=== PATIENT | female | born 1955 | race Caucasian/White ===

== ENCOUNTER 2017-04-17 12:26 | Emergency (ER) | payer MEDICARE ==
[~2017-04-17 12:26] MED LIST: Donnatal Elixir 16.2 MG/5 ML UDCUP ONE; Sodium Chloride 0.9% 1,000 ML BAG ONE
[2017-04-17] MEDS ORDERED: Ondansetron HCl/PF 4 MG/2 ML Vial ONE (12:45)
[2017-04-17] MEDS ORDERED: Ketorolac Tromethamine 30 MG/ML VIAL ONE (12:46)
[2017-04-17 13:10] LABS: Clarity Slightly Cloudy (Clear); Specific Gravity, Urine 1.015 (1.005-1.030)
[2017-04-17 13:14] LABS: Bacteria/HPF 4+ HPF (None Seen); Bilirubin Negative (Negative); Blood, Urine Negative (Negative); Glucose, Urine (Dipstick) >=1000 mg/dL (Negative); Leukocyte Negative (Negative); Nitrite Positive (Negative); Protein, Urine (Dipstick) Negative (Neg-Trace); RBC/HPF 0-3 HPF (0-3)
[2017-04-17 13:27] LABS: #Basophils 0.1 thou/uL (0.0-0.2); #Lymphocytes 1.4 thou/uL (1.20-3.40); #Monocytes 0.3 thou/uL (0.11-0.59); #Neutrophils 9.1 thou/uL (1.40-6.50); %Basophils 0.7 % (0.0-1.0); %Eosinophils 0.2 % (0.0-10.0); %Lymphocytes 12.9 % (21.0-51.0); %Monocytes 2.4 % (0.0-10.0); %Neutrophils 83.7 % (42.0-75.0); Hemoglobin 17.1 g/dL (12.0-16.0); Mean Corpuscular HGB CONC 34.9 g/dL (32.0-36.0); Mean Corpuscular Hemoglobin 30.8 pg (27.0-31.0); Mean Corpuscular Volume 88.2 fl (81.0-99.0); Mean Platelet Volume 8.4 fL (7.4-10.4); Platelet Count 216 thou/uL (130-400); RBC Distribution Width 11.8 % (11.5-14.5); Red Blood Cell (RBC) Count 5.54 mill/uL (4.20-5.40); White Blood Cell (WBC) Count 10.9 thou/uL (4.8-10.8)
[2017-04-17 13:32] LABS: ALT (SGPT) 10 U/L (8-55); AST (SGOT) 10 U/L (5-34); Albumin 4.5 g/dL (3.4-4.8); Alkaline Phosphatase 153 U/L (40-150); Anion Gap 19 mmol/L (10-20); BUN (Urea Nitrogen) 16 mg/dL (9.8-20.1); Calc. Creatinine Clearance 0 mL/min (70-130); Calcium 9.7 mg/dL (7.8-10.44); Carbon Dioxide 26 mmol/L (23-31); Chloride 94 mmol/L (98-107); Estimated GFR-MDRD 53; Glucose 446 mg/dL (80-115); Lipase 16 U/L (8-78); Potassium 3.8 mmol/L (3.5-5.1); Protein, Total 7.5 g/dL (6.0-8.3); Sodium 135 mmol/L (136-145)
[2017-04-17] MEDS ORDERED: Iopamidol 370 76% 100 ML VIAL ONE (13:32)
[2017-04-17] MEDS ORDERED: Donnatal Elixir 16.2 MG/5 ML UDCUP ONE (13:53)
[2017-04-17] MEDS ORDERED: Lidocaine Viscous Sol 2% 15 ml UD Cup ONE (13:53)
[2017-04-17] MEDS ORDERED: Mag-Al Plus 1200 MG/1200 MG/120 MG/30 ML UDCUP ONE (13:53)
[2017-04-17] MEDS ORDERED: Nitrofurantoin Monohyd/M-Cryst 100 MG CAP ONE (14:16)
--- NOTE | 2017-04-17 17:01 | CT ---
CT ABDOMEN WITH IV CONTRAST CT PELVIS WITH IV CONTRAST: Date: 04-17-17 History: Mid upper abdominal pain for one day. Comparison: 09-08-11 FINDINGS: The lung bases are clear. There is a small amount of contrast seen in the distal esophagus with a tiny hiatal hernia. Contrast in the distal esophagus may be related to gastroesophageal reflux. As note on the prior examination there are post cholecystectomy changes with dilatation of the commo n duct and mild prominence of the pancreatic duct which is a stable finding and is probably related to reservoir effect from post cholecystectomy changes. There is a tiny low density subcentimeter nodule in the lateral limb of the left adrenal gland which is stable from the prior exam and suggests a benign finding. It may represent a tiny adrenal adenom a. The liver, spleen, right adrenal gland, and bilateral kidneys and urinary bladder demonstrate a norm al CT appearance. While there is prominence of the pancreatic duct, the pancreas otherwise also has a normal CT appearance. Vascular calcifications are seen in the abdomen aorta and involving the tyrone c arteries. The uterus is not visualized and may be surgically absent. This is a stable finding. The opacified bowel has a normal CT appearance. There is evidence of a left total hip prosthesis. There has been no other interval change compared to the prior exam. IMPRESSION: 1. No acute findings are seen in the abdomen or pelvis. 2. Post cholecystectomy changes similar to the prior study. 3. Previously noted stranding and low density material adjacent to the head of the pancreas has reso lved. 4. Probable tiny left adrenal adenoma. 5. Contrast distal esophagus suggesting gastroesophageal reflux. There is a tiny hiatal hernia prese nt. 6. Hysterectomy. POS: [facility]
[2017-04-17] MEDS ORDERED: Pantoprazole 40 MG VIAL ONE (17:35)
[2017-04-17] MEDS ORDERED: Insulin Regular 300 UNITS/3 ML VIAL ONE (17:36)
== END 2017-04-17 19:10 | disposition home or self-care (01) ==
LOC: MADERS 12:26
DX: K21.9 Gastro-esophageal reflux disease without esophagitis (principal); E11.65 Type 2 diabetes mellitus with hyperglycemia; N39.0 Urinary tract infection, site not specified; I10 Essential (primary) hypertension; J45.909 Unspecified asthma, uncomplicated; E03.9 Hypothyroidism, unspecified; F31.9 Bipolar disorder, unspecified; F17.210 Nicotine dependence, cigarettes, uncomplicated; Z79.899 Other long term (current) drug therapy; Z79.84 Long term (current) use of oral hypoglycemic drugs
CPT/HCPCS: 36415; 36416; 74177; 80053; 81001; 82150; 83690; 85025; 86140; 87077; 87086; 87186; 96361; 96374; 96375; 96376; C9113; J1815; J1885; J2270; J2405; J7050

== ENCOUNTER 2017-05-02 05:15 | Emergency (ER) | payer MEDICARE ==
[2017-05-02 06:41] LABS: #Basophils 0.1 thou/uL (0.0-0.2); #Eosinphils 0.4 thou/uL (0.0-0.7); #Lymphocytes 2.6 thou/uL (1.20-3.40); #Monocytes 0.4 thou/uL (0.11-0.59); %Basophils 1.6 % (0.0-1.0); %Eosinophils 5.2 % (0.0-10.0); %Monocytes 5.7 % (0.0-10.0); %Neutrophils 53.6 % (42.0-75.0); Hemoglobin 14.1 g/dL (12.0-16.0); Mean Corpuscular HGB CONC 33.7 g/dL (32.0-36.0); Mean Corpuscular Hemoglobin 30.1 pg (27.0-31.0); Mean Corpuscular Volume 89.3 fl (81.0-99.0); Mean Platelet Volume 7.6 fL (7.4-10.4); Platelet Count 217 thou/uL (130-400); RBC Distribution Width 11.9 % (11.5-14.5); Red Blood Cell (RBC) Count 4.67 mill/uL (4.20-5.40); White Blood Cell (WBC) Count 7.5 thou/uL (4.8-10.8)
[2017-05-02] MEDS ORDERED: diphenhydrAMINE HCl 50 MG/ML 1 ML VIAL ONE (06:49)
[2017-05-02] MEDS ORDERED: Morphine Sulfate 2 MG/ML SYRINGE ONE (06:49)
[2017-05-02] MEDS ORDERED: Ondansetron HCl/PF 4 MG/2 ML Vial ONE (06:49)
[2017-05-02 06:52] LABS: D-Dimer Test 0.45 *mcg/mL (0.27-0.43); INR-International Normal Ratio 0.9; Prothrombin Time 12.6 SEC (12.0-14.7)
[2017-05-02 06:57] LABS: PTT 29.9 SEC (22.9-36.1)
[2017-05-02 07:02] LABS: ALT (SGPT) 7 U/L (8-55); AST (SGOT) 10 U/L (5-34); Albumin 3.9 g/dL (3.4-4.8); Alkaline Phosphatase 125 U/L (40-150); Anion Gap 15 mmol/L (10-20); BUN (Urea Nitrogen) 9 mg/dL (9.8-20.1); Bilirubin, Total 0.4 mg/dL (0.2-1.2); CK (CPK) 46 U/L (29-168); Calc. Creatinine Clearance 0 mL/min (70-130); Calcium 9.4 mg/dL (7.8-10.44); Carbon Dioxide 26 mmol/L (23-31); Chloride 101 mmol/L (98-107); Estimated GFR-MDRD 74; Globulin 2.8 g/dL (2.4-3.5); Glucose 286 mg/dL (80-115); Lipase 20 U/L (8-78); Potassium 3.6 mmol/L (3.5-5.1); Protein, Total 6.7 g/dL (6.0-8.3); Sodium 138 mmol/L (136-145)
[2017-05-02 07:03] LABS: CKMB 1.1 ng/mL (0-6.6); Troponin I Less than 0.010 ng/mL (< 0.028)
[2017-05-02 07:08] LABS: Amphetamine Detected (NotDetected); Barbiturates Screen Not Detected (NotDetected); Benzodiazepine Screen Not Detected (NotDetected); Cocaine Metabolite Screen Not Detected (NotDetected); Medtox Control Line Valid? VALID (VALID); Methadone Not Detected (NotDetected); Methamphetamine Not Detected (NotDetected); Opiate Screen Not Detected (NotDetected); Oxycodone Screen Not Detected (NotDetected); Phencyclidine (PCP) Not Detected (NotDetected); THC/Cannabinoid Screen Not Detected (NotDetected); Tricyclic Screen Detected (NotDetected)
[2017-05-02 07:09] LABS: Clarity Clear (Clear); Glucose, Urine (Dipstick) >=1000 mg/dL (Negative); Leukocyte Negative (Negative); Nitrite Negative (Negative); Protein, Urine (Dipstick) Negative (Neg-Trace); pH, Urine 6.5 (5.0-9.0)
[2017-05-02 07:10] LABS: Bilirubin Negative (Negative); Blood, Urine Negative (Negative); RBC/HPF 0-3 HPF (0-3); Squamous Epithelial 0-3 HPF (0-3); Urobilinogen 0.2 mg/dL (0.2-1.0); WBC/HPF 0-3 HPF (0-3)
[2017-05-02 07:11] LABS: Bacteria/HPF Rare-Few HPF (None Seen)
[2017-05-02] MEDS ORDERED: Sodium Chloride 0.9% 1,000 ML BAG ONE (07:47)
--- NOTE | 2017-05-02 08:21 | CT ---
EXAM: CT ANGIOGRAM OF THE CHEST: HISTORY: Severe upper back pain. COMPARISON: None. TECHNIQUE: CT angiogram of the chest is performed in the axial plane. Bilateral oblique and coronal 3-dimensio nal maximum intensity projection images are submitted for interpretation. FINDINGS: No mediastinal mass, lymphadenopathy, or hematoma. Heart size is within normal limits. No pericard ial effusion. Thoracic aorta and upper abdominal aorta have an overall normal caliber. No periaort ic fat stranding. No aneurysm. Minimal atherosclerotic changes are noted. Visualized upper solid organs are unremarkable. Surgically absent gallbladder. Trachea and central bronchi are patent. No masses or consolidation. No pleural effusion or pneumot horax. Adequate contrast opacification of the pulmonary arterial system to the level of the segmental arter ies. No filling defect to imply thromboembolism. No osteoblastic or osteolytic lesions. IMPRESSION: No evidence of pulmonary artery embolism to the level of the segmental arteries. POS: [facility]
[2017-05-02] MEDS ORDERED: Iopamidol 370 76% 125 ML VIAL FS ONE (11:58)
[2017-05-02] MEDS ORDERED: Sodium Chloride 0.9% 100 ML BAG ONE (11:58)
== END 2017-05-02 09:38 | disposition home or self-care (01) ==
LOC: MADERS 05:15
DX: M54.6 Pain in thoracic spine (principal); I10 Essential (primary) hypertension; J45.909 Unspecified asthma, uncomplicated; E11.9 Type 2 diabetes mellitus without complications; E03.9 Hypothyroidism, unspecified; F31.9 Bipolar disorder, unspecified; F17.210 Nicotine dependence, cigarettes, uncomplicated; Z79.84 Long term (current) use of oral hypoglycemic drugs; Z79.899 Other long term (current) drug therapy
CPT/HCPCS: 71275; 80053; 80306; 81001; 82553; 83690; 83880; 84484; 85025; 85379; 85610; 85652; 85730; 87086; 93005; 96361; 96374; 96375; 96376; J1200; J2270; J2405; J7050

== ENCOUNTER 2017-05-20 11:14 | Emergency (ER) | payer MEDICARE ==
[2017-05-20] MEDS ORDERED: Fentanyl 100 MCG/2 ML VIAL ONE (11:48)
== END 2017-05-20 13:29 | disposition home or self-care (01) ==
LOC: MADERS 11:14
DX: M54.6 Pain in thoracic spine (principal); F41.9 Anxiety disorder, unspecified; I10 Essential (primary) hypertension; J45.909 Unspecified asthma, uncomplicated; E11.9 Type 2 diabetes mellitus without complications; E03.9 Hypothyroidism, unspecified; F31.9 Bipolar disorder, unspecified; F17.210 Nicotine dependence, cigarettes, uncomplicated; Z79.899 Other long term (current) drug therapy; Z79.84 Long term (current) use of oral hypoglycemic drugs
CPT/HCPCS: 96372; J3010

== ENCOUNTER 2017-06-02 07:09 | Emergency (ER) | payer MEDICARE ==
--- NOTE | 2017-06-02 09:22 | RAD ---
4 VIEWS RIGHT KNEE: Date: 06/02/17 COMPARISON: None. HISTORY: Right knee pain. FINDINGS: Four views of the right knee show no evidence of acute fracture or dislocation. Mild tricompartmenta l osteophyte formation is seen consistent with osteoarthritis. IMPRESSION: Mild right knee osteoarthritis without acute osseous abnormality. POS: [facility]
== END 2017-06-02 08:35 | disposition home or self-care (01) ==
LOC: MADERS 07:09
DX: S83.411A Sprain of medial collateral ligament of right knee, initial encounter (principal); G89.29 Other chronic pain; M54.6 Pain in thoracic spine; I10 Essential (primary) hypertension; J45.909 Unspecified asthma, uncomplicated; E11.9 Type 2 diabetes mellitus without complications; E03.9 Hypothyroidism, unspecified; F31.9 Bipolar disorder, unspecified; F17.210 Nicotine dependence, cigarettes, uncomplicated; W18.30XA Fall on same level, unspecified, initial encounter; Y93.02 Activity, running

== ENCOUNTER 2017-09-02 06:07 | Emergency (ER) | payer MEDICARE ==
[2017-09-02] MEDS ORDERED: HYDROcodone/Acetaminophen 5/325 mg Tablet ONE (06:34)
[2017-09-02] MEDS ORDERED: Lorazepam 1 MG TAB ONE (06:34)
[2017-09-02] MEDS ORDERED: Acyclovir 200 mg Capsule ONE ×2 (06:36→06:37)
[2017-09-02] MEDS ORDERED: Gabapentin 100 MG CAP ONE (06:36)
--- NOTE | 2017-09-02 08:41 | RAD ---
CHEST 2 VIEWS: HISTORY: Cough. COMPARISON: 05/11/17. FINDINGS: The cardiac silhouette and pulmonary vasculature are unremarkable. Mediastinum is midline. There i s no confluent airspace consolidation, pneumothorax, or pleural fluid evident. Calcifications appar ent within the aorta. IMPRESSION: 1. Atherosclerosis. 2. No active cardiopulmonary abnormalities are otherwise demonstrated. POS: [facility]
== END 2017-09-02 07:15 | disposition home or self-care (01) ==
LOC: MADERS 06:07
DX: B02.9 Zoster without complications (principal); I10 Essential (primary) hypertension; J45.909 Unspecified asthma, uncomplicated; E11.9 Type 2 diabetes mellitus without complications; E03.9 Hypothyroidism, unspecified; F31.9 Bipolar disorder, unspecified; F17.210 Nicotine dependence, cigarettes, uncomplicated
CPT/HCPCS: 71020

== ENCOUNTER 2017-12-19 19:16 | Emergency (ER) | payer MEDICARE ==
[~2017-12-19 19:16] MED LIST changes: -Donnatal Elixir 16.2 MG/5 ML UDCUP ONE; +Sodium Chloride 0.9% 100 ML BAG ONE
[2017-12-19] MEDS ORDERED: methylPREDNISolone Sod Succ/PF 125 MG/2 ML VIAL ONE (19:31)
--- NOTE | 2017-12-19 20:10 | RAD ---
PORTABLE CHEST 12/19/17 PROVIDED CLINICAL HISTORY: Cough. FINDINGS: Comparison is made with the study dated 09/02/17. Cardiac and mediastinal silhouette is unchanged in appearance. Atherosclerosis involves the aortic ar ch. No focal consolidation, pleural fluid or pneumothorax apparent. IMPRESSION: No evidence for an acute cardiopulmonary process. POS: [facility]
[2017-12-19 20:36] LABS: ALT (SGPT) 9 U/L (8-55); AST (SGOT) 16 U/L (5-34); Albumin 3.2 g/dL (3.4-4.8); Alkaline Phosphatase 215 U/L (40-150); Anion Gap 24 mmol/L (10-20); BUN (Urea Nitrogen) 14 mg/dL (9.8-20.1); Bilirubin, Total 0.6 mg/dL (0.2-1.2); Calc. Creatinine Clearance 0 mL/min (70-130); Calcium 9.8 mg/dL (7.8-10.44); Carbon Dioxide 21 mmol/L (23-31); Chloride 93 mmol/L (98-107); Estimated GFR-MDRD 63; Globulin 4.9 g/dL (2.4-3.5); Glucose 444 mg/dL (80-115); Potassium 3.3 mmol/L (3.5-5.1); Protein, Total 8.1 g/dL (6.0-8.3); Sodium 135 mmol/L (136-145)
[2017-12-19 20:41] LABS: CKMB 1.6 ng/mL (0-6.6); Troponin I Less than 0.010 ng/mL (< 0.028)
[2017-12-19 20:51] LABS: Bilirubin Small (Negative); Blood, Urine Trace (Negative); Glucose, Urine (Dipstick) 500 mg/dL (Negative); Leukocyte Negative (Negative); Nitrite Negative (Negative); Protein, Urine (Dipstick) 30 mg/dL (Neg-Trace); Specific Gravity, Urine 1.015 (1.005-1.030); pH, Urine 6.5 (5.0-9.0)
[2017-12-19] MEDS ORDERED: Insulin Regular 300 UNITS/3 ML VIAL ONE (20:56)
[2017-12-19] MEDS ORDERED: Morphine 4 MG/ML VIAL ONE (20:56)
[2017-12-19] MEDS ORDERED: Piperacillin/Tazobactam 3.375 GM VIAL ONE (20:56)
[2017-12-19 21:04] LABS: Hemoglobin 14.3 g/dL (12.0-16.0); Mean Corpuscular HGB CONC 33.9 g/dL (32.0-36.0); Mean Corpuscular Hemoglobin 30.8 pg (27.0-31.0); Mean Corpuscular Volume 90.8 fl (81.0-99.0); Mean Platelet Volume 8.2 fL (7.4-10.4); Platelet Count 433 thou/uL (130-400); RBC Distribution Width 11.9 % (11.5-14.5); Red Blood Cell (RBC) Count 4.65 mill/uL (4.20-5.40); White Blood Cell (WBC) Count 16.9 thou/uL (4.8-10.8)
[2017-12-19 21:09] LABS: MDiff Complete? YES
[2017-12-19 21:10] LABS: Band 18 % (5-11); Lymphocytes 8 % (21-51); Metamyelocyte 1 % (0-0); Monocytes 1 % (0-10); Neutrophil 71 % (42-75)
[2017-12-19 21:11] LABS: Bacteria/HPF 1+ HPF (None Seen); Clarity Hazy (Clear)
[2017-12-19 21:12] LABS: Amphetamine Detected (NotDetected); Barbiturates Screen Not Detected (NotDetected); Benzodiazepine Screen Detected (NotDetected); Cocaine Metabolite Screen Not Detected (NotDetected); Medtox Control Line Valid? VALID (VALID); Methadone Not Detected (NotDetected); Methamphetamine Detected (NotDetected); Opiate Screen Detected (NotDetected); Oxycodone Screen Not Detected (NotDetected); Phencyclidine (PCP) Not Detected (NotDetected); THC/Cannabinoid Screen Not Detected (NotDetected); Tricyclic Screen Not Detected (NotDetected)
== END 2017-12-19 21:58 | disposition short-term general hospital (02) ==
LOC: MADERS 19:16
DX: J10.1 Influenza due to other identified influenza virus with other respiratory manifestations (principal); J44.1 Chronic obstructive pulmonary disease with (acute) exacerbation; E11.65 Type 2 diabetes mellitus with hyperglycemia; I10 Essential (primary) hypertension; E03.9 Hypothyroidism, unspecified; F31.9 Bipolar disorder, unspecified; F17.210 Nicotine dependence, cigarettes, uncomplicated
CPT/HCPCS: 36415; 36416; 71045; 80053; 80306; 81003; 81015; 82553; 83605; 83880; 84443; 84484; 85025; 87040; 96361; 96365; 96375; J1815; J2270; J2543; J2930; J7050; J7620

== ENCOUNTER 2018-01-23 18:57 | Emergency (ER) | payer MEDICARE ==
[~2018-01-23 18:57] MED LIST changes: -Sodium Chloride 0.9% 100 ML BAG ONE
[2018-01-23] MEDS ORDERED: Ondansetron HCl/PF 4 MG/2 ML Vial ONE (19:27)
[2018-01-23] MEDS ORDERED: Fentanyl 100 MCG/2 ML VIAL ONE (19:27)
[2018-01-23] MEDS ORDERED: Iopamidol 370 76% 125 ML VIAL FS ONE (19:30)
[2018-01-23 19:34] LABS: #Basophils 0.1 thou/uL (0.0-0.2); #Lymphocytes 2.3 thou/uL (1.20-3.40); #Monocytes 0.6 thou/uL (0.11-0.59); #Neutrophils 9.8 thou/uL (1.40-6.50); %Basophils 0.4 % (0.0-1.0); %Eosinophils 0.1 % (0.0-10.0); %Lymphocytes 18.2 % (21.0-51.0); %Neutrophils 76.3 % (42.0-75.0); Hemoglobin 14.9 g/dL (12.0-16.0); Mean Corpuscular HGB CONC 34.2 g/dL (32.0-36.0); Mean Corpuscular Hemoglobin 30.6 pg (27.0-31.0); Mean Corpuscular Volume 89.5 fl (81.0-99.0); Mean Platelet Volume 8.2 fL (7.4-10.4); Platelet Count 194 thou/uL (130-400); Red Blood Cell (RBC) Count 4.86 mill/uL (4.20-5.40); White Blood Cell (WBC) Count 12.8 thou/uL (4.8-10.8)
[2018-01-23 19:53] LABS: ALT (SGPT) 9 U/L (8-55); AST (SGOT) 11 U/L (5-34); Albumin 3.9 g/dL (3.4-4.8); Alkaline Phosphatase 123 U/L (40-150); Anion Gap 19 mmol/L (10-20); BUN (Urea Nitrogen) 11 mg/dL (9.8-20.1); Bilirubin, Total 1.4 mg/dL (0.2-1.2); Calc. Creatinine Clearance 0 mL/min (70-130); Calcium 8.7 mg/dL (7.8-10.44); Carbon Dioxide 28 mmol/L (23-31); Chloride 94 mmol/L (98-107); Estimated GFR-MDRD 82; Globulin 2.7 g/dL (2.4-3.5); Glucose 331 mg/dL (80-115); Lipase 19 U/L (8-78); Potassium 3.5 mmol/L (3.5-5.1); Protein, Total 6.6 g/dL (6.0-8.3); Sodium 137 mmol/L (136-145)
[2018-01-23 20:01] LABS: Bilirubin Negative (Negative); Blood, Urine Negative (Negative); Clarity Hazy (Clear); Glucose, Urine (Dipstick) >=1000 mg/dL (Negative); Leukocyte Negative (Negative); Nitrite Negative (Negative); Protein, Urine (Dipstick) Trace mg/dL (Neg-Trace); Specific Gravity, Urine 1.015 (1.005-1.030)
[2018-01-23 20:05] LABS: Amphetamine Not Detected (NotDetected); Barbiturates Screen Not Detected (NotDetected); Benzodiazepine Screen Not Detected (NotDetected); Cocaine Metabolite Screen Not Detected (NotDetected); Medtox Control Line Valid? VALID (VALID); Methadone Not Detected (NotDetected); Methamphetamine Not Detected (NotDetected); Opiate Screen Detected (NotDetected); Oxycodone Screen Not Detected (NotDetected); Phencyclidine (PCP) Not Detected (NotDetected); THC/Cannabinoid Screen Detected (NotDetected); Tricyclic Screen Not Detected (NotDetected)
--- NOTE | 2018-01-23 20:21 | RAD ---
CHEST ONE VIEW ABDOMEN TWO VIEWS 01/23/18 HISTORY: Chest and abdomen pain. FINDINGS: Cardiac silhouette and pulmonary vasculature are unremarkable. Mediastinum is midline with aortic ciaran cification. There is no confluent air space consolidation or evidence of free subdiaphragmatic gas. Gas and stool are apparent within the colon. No differential air fluid levels. Metallic clips overlie the gallbladder fossa. IMPRESSION: Atherosclerosis. Status post cholecystectomy. POS: [facility]
[2018-01-23] MEDS ORDERED: Promethazine HCl 25 MG/ML VIAL ONE (21:02)
[2018-01-23 21:34] LABS: CKMB 0.8 ng/mL (0-6.6); Troponin I 0.013 ng/mL (< 0.028)
--- NOTE | 2018-01-23 23:11 | CT ---
CT ABDOMEN AND PELVIS WITH IV CONTRAST: 01/23/18 HISTORY: Abdomen pain. Nausea. COMPARISON: 04/17/17. FINDINGS: The lung bases are clear. Prominent calcifications are present throughout the arterial structures. Ga llbladder is surgically absent. There is late phase scanning, as contrast material is present within the urinary system. No filling defects are apparent. Degenerative changes involve the lumbar spine. Lack of oral contrast limits evaluation of the bowel. There is no evidence of obstruction. IMPRESSION: 1. Atherosclerosis. 2. Status post cholecystectomy. POS: [facility]
--- NOTE | 2018-01-23 23:20 | CT ---
CT ARTERIOGRAM CHEST WITH IV CONTRAST AND 3D MIP IMAGING 01/23/18 Performed on an emergency basis at 2223 hours. HISTORY: Chest pain. Dyspnea. COMPARISON: After hours exam from 12/20/17. FINDINGS: There is good contrast opacification of the pulmonary arteries and thoracic aorta with normal branchi ng of the great vessels. Calcifications apparent within the arterial structures. Ground glass opacity throughout each lung on the prior study is much less pronounced. A small focus of peribronchial thic kening remains within the right upper lobe. No pleural fluid or mediastinal adenopathy. Diffuse thick ening of the mid esophagus is apparent. IMPRESSION: 1. No CT evidence of pulmonary embolus. 2. Improved appearance of the lungs with decrease in ground glass opacity. Small focus of bronch iectasis and inflammation remains within the right upper lobe, likely related to recent inflammation. 3. Atherosclerosis. 4. Circumferential wall thickening of the mid esophagus. Clinical correlation regarding other si gns and symptoms of esophagitis is required. POS: [facility]
== END 2018-01-23 22:55 | disposition short-term general hospital (02) ==
LOC: MADERS 18:57
DX: R11.2 Nausea with vomiting, unspecified (principal); E11.9 Type 2 diabetes mellitus without complications; E03.9 Hypothyroidism, unspecified; F31.9 Bipolar disorder, unspecified; F17.210 Nicotine dependence, cigarettes, uncomplicated; G89.29 Other chronic pain; J45.909 Unspecified asthma, uncomplicated; K58.9 Irritable bowel syndrome, unspecified; Z79.891 Long term (current) use of opiate analgesic; Z79.899 Other long term (current) drug therapy; Z79.84 Long term (current) use of oral hypoglycemic drugs
CPT/HCPCS: 36415; 71275; 74022; 74177; 80053; 80306; 81003; 82553; 83605; 83690; 84484; 85025; 85379; 93005; 96361; 96374; 96375; J2405; J2550; J3010; J7050